=== PATIENT | female | born 1985 | race Caucasian/White ===

== ENCOUNTER 2019-05-16 21:05 | Inpatient (IN) | payer OTHER ==
[~2019-05-16] VITALS: Ht 182.9 cm; Wt 5.0 kg
[2019-05-18] MEDS ORDERED: FUSION PLUS CA1 EACH PO (20:08)
[2019-05-18] MEDS ORDERED: COLACE100 MG PO (20:08)
[2019-05-18] MEDS ORDERED: IBU800 MG PO (20:08)
[2019-05-18] MEDS ORDERED: SIMETHICONE125 M1 PO (20:12)
== END 2019-05-18 20:21 | disposition home or self-care (01) | DRG 819 ==
LOC: ER 21:05 → OB/GYN 23:17
PROVIDERS: ADMIT Obstetrics & Gynecology
PROC: 10T24ZZ Resection of Products of Conception, Ectopic, Percutaneous Endoscopic Approach (ICD-10-PCS; 2019-05-17)
PROC: BY49ZZZ Ultrasonography of First Trimester, Single Fetus (ICD-10-PCS; 2019-05-17)
PROC: 0UB64ZZ Excision of Left Fallopian Tube, Percutaneous Endoscopic Approach (ICD-10-PCS; principal; 2019-05-17 16:15)
DX: O00.102 Left tubal pregnancy without intrauterine pregnancy (principal); D64.89 Other specified anemias; Z3A.01 Less than 8 weeks gestation of pregnancy

== ENCOUNTER 2021-02-19 10:58 | Emergency (ER) | payer OTHER ==
[~2021-02-19] VITALS: Ht 167.6 cm; Wt 63.5 kg
[~2021-02-19 10:58] MED LIST: COLACE100 MG PO; FUSION PLUS CA1 EACH PO; IBU800 MG PO; SIMETHICONE125 M1 PO
[2021-02-19] MEDS ORDERED: KETO10TA2 PO (15:40)
[2021-02-19] MEDS ORDERED: TAMS0.4C PO (15:40)
== END 2021-02-19 15:54 | disposition home or self-care (01) ==
LOC: ER 10:58
DX: R10.32 Left lower quadrant pain (principal)